=== PATIENT | male | born 1955 | race African-American/Black ===

== ENCOUNTER 2019-02-24 12:20 | Emergency (ER) | payer OTHER ==
[~2019-02-24 12:20] MED LIST: PENICILLN VK500 MG PO
[2019-02-24 13:07] LABS: HEMATOCRIT 42.5 % (39.0-50.0); HEMOGLOBIN 14.2 g/dl (14.0-18.0); IMMATURE GRANULOCYTES 0.2 % (0.0-5.0); MEAN CELL VOLUME 87.8 fL CALC (80.0-100.0); MEAN CORPUSCULAR HGB 29.3 pG CALC (26.0-32.0); MEAN CORPUSCULAR HGB CONC 33.4 g/L CALC (32.0-36.0); NEUT# 5.61 thou/uL (1.82-7.42); RED BLOOD COUNT 4.84 mill/uL (4.70-6.10); RED CELL DISTRI WIDTH 14.3 % (11.5-15.5)
[2019-02-24 13:17] LABS: BUN 19 mg/dL (8-23); BUN/CREATININE RATIO 19 (12-20 (CALC)); CHLORIDE 106 mmol/l (95-108); GFR > 60 ML/MIN (>=60 (CALC)); GFR FOR AFR.AMER. > 60 ML/MIN (>=60 (CALC)); SODIUM 136 mmol/l (137-146)
[2019-02-24 13:19] LABS: ANION GAP 17 (6-22 (CALC)); CARBON DIOXIDE 19 mmol/l (22-30); POTASSIUM 5.5 mmol/l (3.5-5.1)
[2019-02-24] MEDS ORDERED: METFORMIN1000 MG PO (13:26)
[2019-02-24] MEDS ORDERED: NIFEDIPINE ER90 M1 PO (13:27)
[2019-02-24 13:52] VITALS: BP 148/93
[2019-04-09] MEDS ORDERED: MULTI VIT PO (08:35)
[2019-04-09] MEDS ORDERED: CYCLOBENZAPR5 MG PO (08:36)
[2019-04-09] MEDS ORDERED: LYRICA75 MG PO (08:37)
[2019-04-09] MEDS ORDERED: INHALER IN (08:38)
== END 2019-02-24 13:52 | disposition left against medical advice (07) ==
LOC: ED 12:20
PROVIDERS: Family Medicine
DX: R07.89 Other chest pain (principal); Z53.29 Procedure and treatment not carried out because of patient's decision for other reasons

== ENCOUNTER 2019-04-15 | Day surgery (SDC) | payer OTHER ==
[~2019-04-15] MED LIST changes: +CYCLOBENZAPR5 MG PO; +INHALER IN; +LYRICA75 MG PO; +METFORMIN1000 MG PO; +MULTI VIT PO; +NIFEDIPINE ER90 M1 PO
[2019-04-15] MEDS ORDERED: ATROVENT H17 MCG/ACT IN (06:58)
[2019-04-15] MEDS ORDERED: SYMBICORT1 AE1 IN (06:58)
== END 2019-04-15 09:15 | disposition home or self-care (01) ==
DX: Z12.11 Encounter for screening for malignant neoplasm of colon (principal); K50.10 Crohn's disease of large intestine without complications; K63.5 Polyp of colon; K64.8 Other hemorrhoids; E11.9 Type 2 diabetes mellitus without complications; I10 Essential (primary) hypertension; Z79.84 Long term (current) use of oral hypoglycemic drugs

== ENCOUNTER 2021-10-09 09:32 | Observation (INO) | payer OTHER ==
[~2021-10-09] VITALS: Ht 172.7 cm; Wt 123.0 kg
[2021-10-09] VITALS (10 sets, daily range): BP systolic 114–144; BP diastolic 70–96
[~2021-10-09 09:32] MED LIST changes: +ATROVENT H17 MCG/ACT IN; +METFORMIN HCL1000 M1 PO; -METFORMIN1000 MG PO; +SYMBICORT1 AE1 IN
[2021-10-09 10:20] LABS: HEMATOCRIT 39.7 % (39.0-50.0); HEMOGLOBIN 13.4 g/dl (14.0-18.0); IMMATURE GRANULOCYTES 0.3 % (0.0-5.0); MEAN CELL VOLUME 86.5 fL CALC (80.0-100.0); MEAN CORPUSCULAR HGB 29.2 pG CALC (26.0-32.0); MEAN CORPUSCULAR HGB CONC 33.8 g/dL CAL (32.0-36.0); NEUT# 6.19 thou/uL (1.82-7.42); RED BLOOD COUNT 4.59 mill/uL (4.70-6.10); RED CELL DISTRI WIDTH 14.8 % (11.5-15.5)
[2021-10-09 11:20] LABS: ALBUMIN 3.8 g/dL (3.2-5.0); CREATININE 1.6 mg/dL (0.7-1.3); TOTAL PROTEIN 7.6 g/dL (6.3-8.2)
[2021-10-09 11:21] LABS: BILIRUBIN, TOTAL 0.4 mg/dL (0.0-1.4); POTASSIUM 5.3 mmol/l (3.5-5.1)
[2021-10-09] MEDS ORDERED: GLIMEPIRIDE4 MG PO (13:43)
[2021-10-09] MEDS ORDERED: METFORMIN HCL1000 M1 PO (13:44)
[2021-10-10 00:23] VITALS: BP 146/85
[2021-10-10 04:31] VITALS: BP 138/75
[2021-10-10 05:31] LABS: HEMATOCRIT 37.3 % (39.0-50.0); HEMOGLOBIN 12.4 g/dl (14.0-18.0); MEAN CELL VOLUME 87.1 fL CALC (80.0-100.0); MEAN CORPUSCULAR HGB CONC 33.2 g/dL CAL (32.0-36.0); RED BLOOD COUNT 4.28 mill/uL (4.70-6.10); RED CELL DISTRI WIDTH 14.5 % (11.5-15.5)
[2021-10-10 05:47] LABS: BUN 30 mg/dL (8-23); BUN/CREATININE RATIO 22 (12-20 (CALC)); CARBON DIOXIDE 17 mmol/l (22-30); CHLORIDE 113 mmol/l (95-108); CREATININE 1.4 mg/dL (0.7-1.3); GFR FOR AFR.AMER. > 60 ML/MIN (>=60 (CALC)); GFR OTHER RACES 51 ML/MIN (>=60 (CALC)); MAGNESIUM 2.1 mg/dL (1.6-2.3); SODIUM 136 mmol/l (137-146)
[2021-10-10 06:13] LABS: ANION GAP 11 (6-22 (CALC)); POTASSIUM 4.9 mmol/l (3.5-5.1)
[2021-10-10 10:22] VITALS: BP 142/76
[2021-10-10] MEDS ORDERED: XARELTO STARTER1 TAB PO (14:00)
[2021-10-10 14:52] VITALS: BP 142/76
== END 2021-10-10 15:41 | disposition home or self-care (01) ==
LOC: ED 09:32 → ED-I 11:10 → ED 11:26 → MS2 11:26
PROVIDERS: Internal Medicine; ADMIT Hospitalist; ATTEND Hospitalist
DX: I82.431 Acute embolism and thrombosis of right popliteal vein (principal); I82.441 Acute embolism and thrombosis of right tibial vein; I82.811 Embolism and thrombosis of superficial veins of right lower extremity; I10 Essential (primary) hypertension; E11.40 Type 2 diabetes mellitus with diabetic neuropathy, unspecified; G40.909 Epilepsy, unspecified, not intractable, without status epilepticus; F17.210 Nicotine dependence, cigarettes, uncomplicated; Z79.84 Long term (current) use of oral hypoglycemic drugs; Z20.822 Contact with and (suspected) exposure to COVID-19
CPT/HCPCS: G0378; J1650

== ENCOUNTER 2023-03-28 08:26 | Emergency (ER) | payer MEDICARE, OTHER ==
[2023-03-28] VITALS (13 sets, daily range): BP systolic 126–167; BP diastolic 78–102
[~2023-03-28] VITALS: Ht 172.7 cm; Wt 126.3 kg
[~2023-03-28 08:26] MED LIST changes: +GLIMEPIRIDE4 MG PO; +XARELTO STARTER1 TAB PO
[2023-03-28 09:41] LABS: BASO% 0.3 % (0-3); HEMATOCRIT 45.5 % (39.0-50.0); HEMOGLOBIN 14.7 g/dl (14.0-18.0); IMMATURE GRANULOCYTES 0.4 % (0.0-5.0); LYMPH% 14.7 % (15-41); MEAN CELL VOLUME 88.7 fL CALC (80.0-100.0); MEAN CORPUSCULAR HGB 28.7 pG CALC (26.0-32.0); MEAN CORPUSCULAR HGB CONC 32.3 g/dL CAL (32.0-36.0); NEUT# 4.81 thou/uL (1.82-7.42); NEUT% 69.6 % (42-76); RED BLOOD COUNT 5.13 mill/uL (4.70-6.10); RED CELL DISTRI WIDTH 15.8 % (11.5-15.5)
[2023-03-28 09:54] LABS: ALKALINE PHOSPHATASE 87 u/l (38-126); ANION GAP 15 (6-22 (CALC)); BILIRUBIN, TOTAL 0.4 mg/dL (0.2-1.3); BUN 34 mg/dL (8-23); BUN/CREATININE RATIO 25 (12-20 (CALC)); CARBON DIOXIDE 18 mmol/l (22-30); CHLORIDE 109 mmol/l (95-108); CREATININE 1.4 mg/dL (0.7-1.3); GFR FOR AFR.AMER. > 60 ML/MIN (>=60 (CALC)); GFR OTHER RACES 51 ML/MIN (>=60 (CALC)); POTASSIUM 4.9 mmol/l (3.5-5.1); SGOT/AST 33 u/l (19-48); SODIUM 137 mmol/l (137-146); TOTAL PROTEIN 7.7 g/dL (6.3-8.2)
[2023-03-28 09:55] LABS: D-DIMER 0.91 mg/L (0.19-0.60)
[2023-03-28 09:58] LABS: INTERNATIONAL NORMALIZED RATIO 1.1 RATIO (0.7-1.3); PROTHROMBIN TIME 10.4 SECONDS (9.0-12.5)
[2023-03-28] MEDS ORDERED: ZPAK PO (11:51)
[2023-03-28] MEDS ORDERED: VENTOLIN HFA108 MCG PO (11:53)
== END 2023-03-28 12:55 | disposition home or self-care (01) ==
LOC: ED 08:26
PROVIDERS: Emergency Medicine
DX: J45.901 Unspecified asthma with (acute) exacerbation (principal); I10 Essential (primary) hypertension; E11.40 Type 2 diabetes mellitus with diabetic neuropathy, unspecified; G40.909 Epilepsy, unspecified, not intractable, without status epilepticus; Z79.84 Long term (current) use of oral hypoglycemic drugs; F17.210 Nicotine dependence, cigarettes, uncomplicated; Z20.822 Contact with and (suspected) exposure to COVID-19
CPT/HCPCS: Q9967

== ENCOUNTER 2023-12-08 08:44 | Inpatient (IN) | payer MEDICARE, MEDICAID ==
[2023-12-08] VITALS (74 sets, daily range): BP systolic 84–182; BP diastolic 55–133
[~2023-12-08] VITALS: Ht 172.7 cm; Wt 129.5 kg
[~2023-12-08 08:44] MED LIST changes: +VENTOLIN HFA108 MCG PO; +ZPAK PO
[2023-12-08] MEDS ORDERED: cefTRIAXone SODIUM 2 GM in SODIUM CHLORIDE 0.9% 100 ML IV ONE (09:20)
[2023-12-08] MEDS ORDERED: NAPROXEN500 MG PO (09:31)
[2023-12-08] MEDS ORDERED: ATORVASTATIN CA40 MG PO (09:31)
[2023-12-08] MEDS ORDERED: JANUVIA100 MG PO (09:32)
[2023-12-08] MEDS ORDERED: JARDIANCE25 MG (09:34)
[2023-12-08 09:37] LABS: BASO% 0.1 % (0-3); HEMATOCRIT 42.2 % (39.0-50.0); HEMOGLOBIN 13.9 g/dl (14.0-18.0); IMMATURE GRANULOCYTES 1.7 % (0.0-5.0); LYMPH% 1.9 % (15-41); MEAN CELL VOLUME 88.5 fL CALC (80.0-100.0); MEAN CORPUSCULAR HGB 29.1 pG CALC (26.0-32.0); MEAN CORPUSCULAR HGB CONC 32.9 g/dL CAL (32.0-36.0); MONO% 5.9 % (2-13); NEUT# 25.7 thou/uL (1.82-7.42); NEUT% 90.4 % (42-76); RED BLOOD COUNT 4.77 mill/uL (4.70-6.10); RED CELL DISTRI WIDTH 14.1 % (11.5-15.5)
[2023-12-08] MEDS ORDERED: VANCOMYCIN HCL 1 GM in SODIUM CHLORIDE 0.9% 250 ML IV ONE (09:45)
[2023-12-08 09:49] LABS: ALBUMIN 3.4 g/dL (3.2-5.0); TOTAL PROTEIN 6.8 g/dL (6.3-8.2)
[2023-12-08] MEDS ORDERED: PIPERACILLIN Sodium-Tazobactam 3.375 GM in SODIUM CHLORIDE 0.9% 100 ML IV ONE ×2 (09:50→16:20)
[2023-12-08 09:59] LABS: BILIRUBIN, TOTAL 1.5 mg/dL (0.2-1.3); CREATININE 2.4 mg/dL (0.7-1.3); POTASSIUM 5.4 mmol/l (3.5-5.1)
[2023-12-08] MEDS ORDERED: SODIUM CHLORIDE 0.9% 1,000 ML IV ONE ×3 (10:00→17:38)
[2023-12-08 12:03] LABS: URINE BLOOD DIPSTICK Negative (NEGATIVE); URINE COLOR Yellow; URINE GLUCOSE - DIPSTICK >=1000 mg/dL (NEGATIVE); URINE KETONE Negative (NEGATIVE); URINE LEUK ESTERASE Negative (NEGATIVE); URINE NITRITE - DIPSTICK Negative (Negative); URINE PROTEIN - DIPSTICK 30 mg/dL (NEG-TRACE)
[2023-12-08 12:04] LABS: URINE EPITHELIAL CELLS FEW EPI/hpf (0-FEW); URINE MUCUS MODERATE hpf (NONE-FEW)
[2023-12-08] MEDS ORDERED: MIDAZOLAM HCL 2 MG/2 ML VIAL IV ONE (14:58)
[2023-12-08] MEDS ORDERED: ESMOLOL HCL 10 MG/ML VIAL IV ONE (14:58)
[2023-12-08] MEDS ORDERED: KETAMINE HCL 50 MG/ML 10 ML VIAL IV ONE (14:58)
[2023-12-08] MEDS ORDERED: SODIUM CHLORIDE 0.9% 1,000 ML BAG IV ONE (14:58)
[2023-12-08] MEDS ORDERED: PROPOFOL 200 MG/20 ML VIAL IV ONE (14:58)
[2023-12-08] MEDS ORDERED: SUCCINYLCHOLINE CHLORIDE 20 MG/ML 10ML VIAL IV ONE (14:58)
[2023-12-08] MEDS ORDERED: ROCURONIUM BROMIDE 10 MG/ML 5ML VIAL IV ONE (14:58)
[2023-12-08] MEDS ORDERED: MAGNESIUM HYDROXIDE 30 ML UDC PO PRN (15:30)
[2023-12-08] MEDS ORDERED: ACETAMINOPHEN 325 MG/TAB PO PRN (15:30)
[2023-12-08] MEDS ORDERED: SODIUM CHLORIDE 0.9% 1,000 ML IV PRN (15:30)
[2023-12-08] MEDS ORDERED: CLINDAMYCIN PHOSPHATE 50 ML IV SCH (15:33)
[2023-12-08] MEDS ORDERED: CEFEPIME HYDROCHLORIDE 2 GM in SODIUM CHLORIDE 0.9% 100 ML IV SCH (15:35)
[2023-12-08] MEDS ORDERED: INSULIN REGULAR (HUMAN) 100 UNIT/ML INJ IV ONE (15:45)
[2023-12-08] MEDS ORDERED: FAMOTIDINE 10MG/ML 2ML SDV IV ONE (16:44)
[2023-12-08] MEDS ORDERED: METOCLOPRAMIDE HCL 10 MG/2 ML SDV ONE (16:44)
[2023-12-08] MEDS ORDERED: LIDOcaine HCl 1% (Local Anesth.) 20 ML VIAL ONE (16:46)
[2023-12-08] MEDS ORDERED: INSULIN LISPRO 100 UNITS/ML ML SC SCH (17:00)
[2023-12-08] MEDS ORDERED: MORPHINE SULFATE 4 MG/ML VIAL IV PRN (17:15)
[2023-12-08] MEDS ORDERED: HYDROcodone 5 MG/Acetaminophen 325 MG/COMBO PO PRN (17:15)
[2023-12-08] MEDS ORDERED: Meropenem 1 GM in SODIUM CHLORIDE 0.9% 100 ML IV SCH (18:00)
[2023-12-08] MEDS ORDERED: PROPOFOL 100 ML IV PRN (18:30)
[2023-12-08] MEDS ORDERED: NOREPINEPHRINE BITARTRATE 4 MG in DEXTROSE 5% 250 ML IV PRN (18:35)
[2023-12-08] MEDS ORDERED: SODIUM CHLORIDE 0.9% 500 ML IV ONE ×2 (18:40→20:24)
[2023-12-08] MEDS ORDERED: SODIUM CHLORIDE 1,000 ML BTL IR ONE (19:34)
[2023-12-08] MEDS ORDERED: STERILE WATER FOR IRRIGATION 1,000 ML BTL IR ONE (19:34)
[2023-12-08] MEDS ORDERED: Pantoprazole Sodium 40 MG VIAL (Protonix) IV SCH (20:00)
[2023-12-08 20:15] LABS: CREATININE 2.5 mg/dL (0.7-1.3)
[2023-12-08] MEDS ORDERED: FENTANYL CITRATE 1,000 MCG in SODIUM CHLORIDE 0.9% 80 ML IV PRN (20:20)
[2023-12-08 20:27] LABS: POTASSIUM 5.6 mmol/l (3.5-5.1)
[2023-12-08] MEDS ORDERED: DEXTROSE 250 ML IV PRN (20:35)
[2023-12-08] MEDS ORDERED: SODIUM ZIRCONIUM CYCLOSILICATE 10 GM PAK PO SCH (21:00)
[2023-12-08] MEDS ORDERED: CLARIFY DOSE IV SCH (21:00)
[2023-12-08] MEDS ORDERED: CALCIUM GLUCONATE 1 GM in SODIUM CHLORIDE 0.9% 50 ML IV SCH (21:00)
[2023-12-08] MEDS ORDERED: INSULIN DETEMIR 100 UNITS/ML SC SCH (21:00)
[2023-12-08] MEDS ORDERED: ENOXAPARIN SODIUM 30 MG/0.3 ML INJ SC SCH (21:00)
[2023-12-08] MEDS ORDERED: INSULIN REGULAR (HUMAN) 100 UNIT/ML INJ IV SCH (21:00)
[2023-12-08] MEDS ORDERED: ATORVASTATIN CALCIUM 40 MG/TAB PO SCH (21:00)
[2023-12-08] MEDS ORDERED: INSULIN REGULAR (HUMAN) IN SOD 100 ML IV PRN (21:30)
[2023-12-08] MEDS ORDERED: SODIUM BICARBONATE 150 ML in DEXTROSE 5% 850 ML IV SCH (21:35)
[2023-12-08] MEDS ORDERED: ENOXAPARIN SODIUM 60 MG/0.6 ML SYR SC SCH (22:00)
[2023-12-09] VITALS: BP 120/78
[2023-12-09 00:15] VITALS: BP 109/75
[2023-12-09 00:31] VITALS: BP 98/67
[2023-12-09] MEDS ORDERED: VANCOMYCIN HCL 1 GM in SODIUM CHLORIDE 0.9% 250 ML IV SCH (10:00)
== END 2023-12-09 01:05 | DRG 853 ==
LOC: ED 08:44 → ED-I 09:18 → ED 15:34 → ICU 15:35
PROVIDERS: Family Medicine; ADMIT Student in an Organized Health Care Education/Training Program; ATTEND Student in an Organized Health Care Education/Training Program
PROC: 02HV33Z Insertion of Infusion Device into Superior Vena Cava, Percutaneous Approach (ICD-10-PCS; principal; 2023-12-08)
PROC: 0JBM0ZZ Excision of Left Upper Leg Subcutaneous Tissue and Fascia, Open Approach (ICD-10-PCS; 2023-12-08)
PROC: 0BH17EZ Insertion of Endotracheal Airway into Trachea, Via Natural or Artificial Opening (ICD-10-PCS; 2023-12-08)
PROC: 5A1935Z Respiratory Ventilation, Less than 24 Consecutive Hours (ICD-10-PCS; 2023-12-08)
DX: A41.9 Sepsis, unspecified organism (principal); M72.6 Necrotizing fasciitis; E11.10 Type 2 diabetes mellitus with ketoacidosis without coma; N17.9 Acute kidney failure, unspecified; Z68.41 Body mass index [BMI] 40.0-44.9, adult; J95.88 Other intraoperative complications of respiratory system, not elsewhere classified; T17.918A Gastric contents in respiratory tract, part unspecified causing other injury, initial encounter; R65.20 Severe sepsis without septic shock; I95.9 Hypotension, unspecified; E87.5 Hyperkalemia; E86.9 Volume depletion, unspecified; D64.9 Anemia, unspecified; E11.40 Type 2 diabetes mellitus with diabetic neuropathy, unspecified; I12.9 Hypertensive chronic kidney disease with stage 1 through stage 4 chronic kidney disease, or unspecified chronic kidney disease; E11.22 Type 2 diabetes mellitus with diabetic chronic kidney disease; N18.31 Chronic kidney disease, stage 3a; G40.909 Epilepsy, unspecified, not intractable, without status epilepticus; E66.9 Obesity, unspecified; F17.200 Nicotine dependence, unspecified, uncomplicated; Y83.8 Other surgical procedures as the cause of abnormal reaction of the patient, or of later complication, without mention of misadventure at the time of the procedure; Z79.84 Long term (current) use of oral hypoglycemic drugs; Z86.718 Personal history of other venous thrombosis and embolism; Z79.01 Long term (current) use of anticoagulants; Z20.822 Contact with and (suspected) exposure to COVID-19
CPT/HCPCS: J0692; J0736; J1650; J2470; Q9967